=== PATIENT | male | born 1950 | race Caucasian/White ===

== ENCOUNTER → 2022-03-29 13:29 | Outpatient (CLI) | payer SELFPAY ==
--- NOTE | 2022-03-29 13:32 | DI.RAD.S_ITS ---
PROCEDURE: XR SHOULDER RT MIN 2V INDICATIONS: Right shoulder pain status post fall outstretched hand TECHNIQUE: The views of the shoulder were acquired. COMPARISON: None. FINDINGS: Bones: No acute fractures or dislocations. No suspicious bony lesions. Visualized ribs appear intact. Mild to moderate acromioclavicular joint osteoarthrosis. Prior healed right-sided rib fractures are noted. Soft tissues: A small calcification is seen adjacent to the humeral head that may represent calcific tendinopathy. IMPRESSION: 1. 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 2. Mild to moderate acromioclavicular joint osteoarthrosis. Approved by: Yousif Alexander M.D. on 03/29/2022 at 17:01
== END ==
PROVIDERS: PCP Family Medicine; Referring Provider Physical Medicine & Rehabilitation; Visit Provider Physical Medicine & Rehabilitation
DX: M19.011 Primary osteoarthritis, right shoulder (principal); M75.41 Impingement syndrome of right shoulder; M54.12 Radiculopathy, cervical region
CPT/HCPCS: 73030; 99214

== ENCOUNTER → 2024-12-09 10:55 | Outpatient (CLI) | payer OTHER, MEDICARE, SELFPAY ==
--- NOTE | 2024-12-09 10:57 | DI.MRI.S_ITS ---
PROCEDURE: MR CERVICAL SPINE WO CON INDICATIONS: neck pain TECHNIQUE: Noncontrast sagittal T1 spin echo and T2 fast spin echo, sagittal STIR, foraminal oblique sagittal T2 fast spin echo, and axial gradient echo or T2 fast spin echo through the cervical spine. COMPARISON: None. FINDINGS: Image quality: Excellent. Alignment and Curvature: There is normal bony alignment. Bone Marrow: Marrow demonstrates normal overall signal. Spinal Cord: Visualized spinal cord has normal size and signal. No cerebellar tonsillar herniation. Paraspinous Soft Tissues: No paravertebral masses. Prevertebral soft tissues are normal in thickness. C2-C3: The disc height and disk signal are relatively well-preserved. A mild degree of generalized disc osteophyte complex is seen. Mild facet joint hypertrophy is seen. There is moderate left-sided and no right-sided neural foraminal narrowing. No central canal narrowing is seen. C3-C4: The disc height is well-preserved. Loss of disc signal is seen at this level. A mild degree of generalized disc osteophyte complex is seen. There is moderate right-sided and moderate to prominent left-sided facet hypertrophy. There is moderate to severe left-sided and moderate right-sided neural foraminal narrowing. No significant central canal narrowing is seen. C4-C5: The disc height is well-preserved. Loss of disc signal is seen at this level. Mild to moderate disc osteophyte complex is seen. There is a superimposed central disc osteophyte protrusion. There is mild right-sided and prominent left-sided facet hypertrophy. There is moderate to severe left-sided and moderate right-sided neural foraminal narrowing. Mild to moderate central canal narrowing is seen, with minimal mass effect upon the ventral spinal cord. C5-C6: At least moderate loss of disc height and disc signal can be seen. Moderate generalized disc osteophyte complex is seen. There is [id number] right- sided and at least moderate left-sided facet hypertrophy. There is moderate to severe bilateral neural foraminal narrowing, left worse than right. At least moderate central canal narrowing is seen. There is associated mass effect upon the ventral spinal cord. C6-C7: Moderate loss of disc height is seen. Loss of disc signal is seen. Moderate generalized disc osteophyte complex is seen. There is a central/left disc osteophyte protrusion. Mild to moderate facet hypertrophy is seen. There is moderate to severe bilateral neural foraminal narrowing. Mild to moderate central canal narrowing is seen. C7-T1: Mild loss of disc height is seen. Loss of disc signal is seen. A mild degree of generalized disc osteophyte complex is seen. There is mild right-sided and at least moderate left-sided facet hypertrophy. There is moderate right-sided and moderate to severe left-sided neural foraminal narrowing. Minimal central canal narrowing is seen. IMPRESSION: Multiple levels of significant cervical spine degenerative change can be seen, which are worst at the C5-C6 level. Dictated by: Isma Molina M.D. on 12/09/2024 at 12:45 Approved by: Isma Molina M.D. on 12/09/2024 at 12:49
== END ==
PROVIDERS: PCP Family Medicine; Referring Provider Student in an Organized Health Care Education/Training Program; Visit Provider Student in an Organized Health Care Education/Training Program
DX: M47.812 Spondylosis without myelopathy or radiculopathy, cervical region (principal); M54.2 Cervicalgia
CPT/HCPCS: 72141